=== PATIENT | female | born 1965 | race Two or more races ===

== ENCOUNTER 2016-10-10 17:40 | Emergency (ER) | payer SELFPAY ==
[2016-10-10] MEDS ORDERED: HYDROCODONE/ACETAMINOPHEN 5/325MG TABLET ONE (20:19)
[2016-10-10] MEDS ORDERED: DIPHTH,PERTUSS(ACELL),TET VAC 0.5 ML VIAL IM V ONE (20:19)
== END 2016-10-10 20:39 | disposition home or self-care (01) ==
LOC: ED 17:40
DX: J86.9 Pyothorax without fistula (principal); Z23 Encounter for immunization
CPT/HCPCS: 90715; 90471; 99283 ×2; 10060 ×2; A9270